=== PATIENT | female | born 1955 | race Caucasian/White ===

== ENCOUNTER 2018-04-03 12:03 | Day surgery (SDC) | payer BC ==
[2018-04-03] MEDS ORDERED: PROPOFOL 10 MG/ML VIAL IV ONE (12:04)
[2018-04-03] MEDS ORDERED: LIDOCAINE 2% MDV (20MG/ML) 20ML VIAL IV ONE (12:04)
--- NOTE | 2018-04-06 11:30 | Operative Note ---
DATE OF SURGERY: 04/03/2018 SURGEON: Cruz Modi MD OPERATION: COLONOSCOPY. INDICATIONS: This is a 63-year-old female with family history of colorectal cancer in a brother who the disease about 7 years ago. She presented for screening colonoscopy. POSTOPERATIVE DIAGNOSES: 1. Normal colonic and terminal ileal mucosa with no neoplastic or ulcerative lesions. 2. Grade 1 internal hemorrhoids. ANESTHESIA: Sedation is per Anesthesia. Pulse oximetry was monitored throughout the procedure to maintain O2 saturation of 90% or greater. Supplemental oxygen was administered via nasal cannula. Cardiac and vital signs were monitored throughout the duration of the procedure, and they were stable. The procedure of colonoscopy and risks and alternatives of the procedure, including the risk of bleeding and perforation, among others, were explained to the patient who voiced understanding and agreed to have the procedure done. Physical examination was performed, and the patient was found stable for sedation. PROCEDURE: The patient was placed in the left lateral position. Sedation was initiated. A digital rectal exam was performed and showed some mild external hemorrhoids with no palpable rectal masses. An Olympus PCF-180AL colonoscope was then inserted into the rectum under direct visualization. It was advanced to the cecum without difficulty. The ileocecal valve and appendiceal orifice were identified and photographed. The colonic mucosa was carefully examined upon introduction of the colonoscope. There were no lesions noted. The ileocecal valve was intubated and the terminal ileal mucosa was inspected for about 10 cm and it appeared normal. The colonoscope was then withdrawn while carefully examining the colonic mucosal surfaces. No other lesions were noted. In the rectum, retroflexion was performed and grade 1 internal hemorrhoids were noted. The colonoscope was then withdrawn and the procedure was terminated. The patient tolerated the procedure well without any immediate complications. The patient remained with stable vital signs and was transferred to the recovery room. RECOMMENDATIONS: 1. The patient should be on a high-fiber diet. 2. The patient is to have a repeat colonoscopy for screening in 5 years. Thank you for allowing me to participate in the care of your patient. CC: Red Prather MD [facility]
== END 2018-04-03 13:50 | disposition home or self-care (01) ==
LOC: HOP 12:03
PROVIDERS: ATTEND Internal Medicine Gastroenterology
DX: Z12.11 Encounter for screening for malignant neoplasm of colon (principal); Z80.0 Family history of malignant neoplasm of digestive organs; K64.8 Other hemorrhoids
CPT/HCPCS: 00812; G0105

== ENCOUNTER 2019-06-17 06:00 | Day surgery (SDC) | payer BC ==
[2019-06-17] MEDS ORDERED: PROPOFOL 10 MG/ML VIAL IV ONE (06:01)
[2019-06-17] MEDS ORDERED: LIDOCAINE 2% MDV (20MG/ML) 20ML VIAL IV ONE (06:01)
[2019-06-17] MEDS ORDERED: 0.9 % SODIUM CHLORIDE 1000ML 1,000 ML IV ONE (06:33)
[2019-06-17] MEDS ORDERED: TIMOLOL MALEATE 0.5% 5ML BTL OPTH ONE (07:58)
[2019-06-17] MEDS ORDERED: TETRACAINE HCL 0.5% OPTH 2ML SOLU OPTH ONE (07:58)
[2019-06-17] MEDS ORDERED: LIDOCAINE 2% MDV (20MG/ML) 20ML VIAL INJ ONE (07:58)
[2019-06-17] MEDS ORDERED: BRIMONIDINE TARTRATE 0.2% OPTHALMIC DROPS OP ONE (07:58)
[2019-06-17] MEDS ORDERED: EPINEPHRINE 1 MG/ML AMPUL IO ONE (07:58)
[2019-06-17] MEDS ORDERED: NEOM/BACI/POLY/HC 3.5 GM OPTH OINT OPTH ONE (07:58)
--- NOTE | 2019-06-18 09:19 | OP NOTE CHAMES ---
DATE OF PROCEDURE: 06/17/2019 PREOPERATIVE DIAGNOSIS: Nuclear sclerotic and posterior subcapsular cataract right eye. POSTOPERATIVE DIAGNOSIS: Nuclear sclerotic and posterior subcapsular cataract right eye. OPERATION: Phacoemulsification of cataractous lens with implantation of toric intraocular lens. LENS IMPLANT USED: Marcus [employer] Marcus Model [id number] + 11.5 diopters. COMPLICATIONS: None. PROCEDURE IN DETAIL: The patient was brought to the Operating Room where her eye was marked in the horizontal meridian. She was then given a retrobulbar block following sedation in the usual fashion and prepped and draped for eye surgery. A lid speculum was placed in the right eye using the toric marker with the reference quarles. A secondary orientation rosamaria was placed at 101 degrees. The remainder of the phacoemulsification was then performed. A paracentesis was placed two hours to the left and right of the intended temporal incision. A 2.5 mm clear corneal incision was placed and the chamber was filled with Viscoelastic. The circular capsulorrhexis was performed and hydrodissection of the lens was performed as well. The Phaco handpiece was re-used to remove the nucleus of the lens in a divide and conquer technique and the residual cortical material was irrigated and aspirated from the eye. The bag and chamber were then reinflated with Viscoelastic and the intraocular lens, a [employer] Model [id number] + 11.5 diopters was injected into the capsular bag and oriented to a position 10 degrees short of the final intended axis. The Viscoelastic was irrigated and aspirated from the eye after which the final positioning of the lens was performed. The wounds were hydrated and confirmed to be water tight. The speculum was removed and the patient transferred to the Recovery Room in satisfactory condition. JOB NUMBER: [id number] MTDD
== END 2019-06-17 08:45 | disposition home or self-care (01) ==
LOC: SUR 06:00
PROVIDERS: ATTEND Ophthalmology
DX: H25.11 Age-related nuclear cataract, right eye (principal); M19.90 Unspecified osteoarthritis, unspecified site; R01.1 Cardiac murmur, unspecified; I34.1 Nonrheumatic mitral (valve) prolapse; D68.61 Antiphospholipid syndrome
CPT/HCPCS: J0171; J7030

== ENCOUNTER 2019-07-01 05:57 | Day surgery (SDC) | payer BC ==
[2019-07-01] MEDS ORDERED: MIDAZOLAM HCL 2MG/2ML VIAL IV ONE (05:58)
[2019-07-01] MEDS ORDERED: PROPOFOL 10 MG/ML VIAL IV ONE (05:58)
[2019-07-01] MEDS ORDERED: LIDOCAINE 2% MDV (20MG/ML) 20ML VIAL IV ONE (05:58)
[2019-07-01] MEDS ORDERED: 0.9 % SODIUM CHLORIDE 1000ML 500 ML IV ONE ×2 (06:40→08:11)
[2019-07-01] MEDS ORDERED: LIDOCAINE 1% MPF 100MG/10ML STERILE-PAK AMPULE SQ ONE (07:51)
[2019-07-01] MEDS ORDERED: EPINEPHRINE 1 MG/ML AMPUL IO ONE (07:51)
[2019-07-01] MEDS ORDERED: BRIMONIDINE TARTRATE 0.2% OPTHALMIC DROPS OP ONE (07:51)
[2019-07-01] MEDS ORDERED: LIDOCAINE 2% MDV (20MG/ML) 20ML VIAL INJ ONE (07:51)
[2019-07-01] MEDS ORDERED: NEOM/BACI/POLY/HC 3.5 GM OPTH OINT OPTH ONE (07:51)
[2019-07-01] MEDS ORDERED: TIMOLOL MALEATE 0.5% 5ML BTL OPTH ONE (07:51)
[2019-07-01] MEDS ORDERED: TETRACAINE HCL 0.5% OPTH 2ML SOLU OPTH ONE ×2 (07:51→07:52)
[2019-07-01] MEDS ORDERED: CIPROFLOXACIN HCL 0.0015 GM, PHENYLEPHRINE HCL 0.05 GM, KETOROLAC TROMETHAMINE 0.000625 GM MC ONE ×5 (14:30)
--- NOTE | 2019-07-02 07:32 | OP NOTE CHAMES ---
DATE OF PROCEDURE: 07/01/2019 PREOPERATIVE DIAGNOSIS: Nuclear sclerotic cataract, left eye. POSTOPERATIVE DIAGNOSIS: Nuclear sclerotic cataract, left eye. OPERATION: Phacoemulsification of cataractous lens with implantation of toric intraocular lens. LENS IMPLANT USED: Marcus [employer] Marcus Model [id number] + 13.0 diopters, axis of placement 75 degrees. COMPLICATIONS: None. PROCEDURE IN DETAIL: The patient was brought to the Operating Room where she was given reference quarles at the 0 and 180-degree position under topical anesthesia while sitting upright. She was then replaced in a recumbent position and a retrobulbar block and facial nerve block were given in the usual fashion. She was prepped and draped for eye surgery and a lid speculum placed in the left eye. Using the original reference rosamaria and a toric marker was used to create a rosamaria at 75 degrees, the final axis of intended lens placement. The paracentesis was then placed 2 hours to the left and right of the temporal incision and the chamber deepened with Viscoelastic. A crescent blade was used to dissect a 2.4 mm scleral tunnel wound and a keratome was used to enter the anterior chamber. The circular capsulorrhexis was accomplished and hydrodissection of the lens performed. The nucleus of the lens was then removed using a phaco hand piece in a divide and conquer technique. The bag and chamber were then reinflated with Viscoelastic and the intraocular lens injected into the capsular bag and rotated to a position just short of the final intended axis. The residual Viscoelastic was irrigated and aspirated from the eye after which the lens was dialed in a position to coincide with 75 degrees. The wounds were examined, they were hydrated and confirmed to be water tight. The speculum was removed and the eye was then patched and shielded in the usual technique and the patient was transferred to the Recovery Room in stable condition to be reexamined in the afternoon. JOB NUMBER: [id number] [facility]
== END 2019-07-01 08:38 | disposition home or self-care (01) ==
LOC: SUR 05:57
PROVIDERS: ATTEND Ophthalmology
DX: H25.12 Age-related nuclear cataract, left eye (principal); I34.1 Nonrheumatic mitral (valve) prolapse; M19.90 Unspecified osteoarthritis, unspecified site; F41.8 Other specified anxiety disorders
CPT/HCPCS: J0171; J3490; J7030